=== PATIENT | male | born 1960 | race Caucasian/White ===

== ENCOUNTER 2019-02-12 04:59 | Inpatient (IN) ==
--- NOTE | 2019-02-09 14:53 | EKG Report ---
Test Performed on : 02/09/2019 2:35:42 PM Test Reason : PAT Blood Pressure : / mmHG Vent. Rate : 049 BPM Atrial Rate : 049 BPM P-R Int : 160 ms QRS Dur : 090 ms QT Int : 420 ms P-R-T Axes : 070 022 -06 degrees QTc Int : 379 ms Sinus bradycardia. Low voltage QRS T wave abnormality, consider inferior ischemia Abnormal ECG No previous ECGs available Confirmed by Gurjit GARCIA, Shaquille Rodriguez ([id number]) on 02/11/2019 9:42:05 AM
[2019-02-09 15:26] LABS: HEMATOCRIT 38.1 % (42.0-52.0); HEMOGLOBIN 13.2 g/dL (14.0-18.0); MCHC 34.6 g/dL (33-37); MCV 89.4 FL (81-99); MPV 11.4 FL (7.4-10.4); RBC 4.26 XMIL (4.7-6.1); RDW 12.8 % (11.5-14.5); WBC 8.97 X1000 (4.8-10.8)
[2019-02-09 15:46] LABS: AGAP 9; BUN 21 mg/dL (8-22); CALCIUM 9.5 mg/dL (8.8-10.2); CHLORIDE 101 mmol/L (98-107); COSMO 277; CREATININE 1.1 mg/dL (0.7-1.2); ESTIMATED GFR > 60; GLUCOSE 109 mg/dL (70-104); POTASSIUM 5.1 mmol/L (3.5-5.1); SODIUM 137 mmol/L (136-145); TCO2 27 mmol/L (25-35)
[2019-02-12] MEDS ORDERED: NITROGLYCERIN 50 MG/D5W 0 MG/0 ML IV.SOLN ONE (06:32)
[2019-02-12] MEDS ORDERED: KEFZOL 1 GM/D5W 1 GM/50 ML IVPB ONE (06:33)
[2019-02-12] MEDS ORDERED: REGLAN ONE (06:34)
[2019-02-12] MEDS ORDERED: PEPCID ONE (06:34)
[2019-02-12] MEDS ORDERED: HEPARIN ONE (10:03)
[2019-02-12] MEDS ORDERED: NS 500 ML ONE (10:03)
[2019-02-12] MEDS ORDERED: KEFZOL ONE (10:03)
[2019-02-12] MEDS ORDERED: NS 1,000 ML ONE (10:03)
[2019-02-12] MEDS ORDERED: XYLOCAINE 1% ONE (10:04)
[2019-02-12] MEDS ORDERED: MARCAINE 0.25% PF/EPI 1:200,000 ONE (11:15)
[2019-02-12] MEDS ORDERED: ZOFRAN ONE (11:24)
[2019-02-12] MEDS ORDERED: XYLOCAINE-MPF 2% ONE (11:24)
[2019-02-12] MEDS ORDERED: DECADRON ONE (11:24)
[2019-02-12] MEDS ORDERED: QUELICIN (DOSE) ONE (11:24)
[2019-02-12] MEDS ORDERED: NEO-SYNEPHRINE ONE (11:24)
[2019-02-12] MEDS ORDERED: SODIUM CHLORIDE 0.9% 10 ML ONE (11:24)
[2019-02-12] MEDS ORDERED: NORCURON ONE (11:24)
[2019-02-12] MEDS ORDERED: FENTANYL ONE (11:34)
[2019-02-12] MEDS ORDERED: DIPRIVAN 1% ONE (12:55)
[2019-02-12] MEDS ORDERED: NEOSTIGMINE ONE (13:04)
[2019-02-12] MEDS ORDERED: ROBINUL ONE (13:04)
[2019-02-12] MEDS ORDERED: ULTRAM PO PRN (13:58)
[2019-02-12] MEDS ORDERED: ZOFRAN IV PRN (13:58)
[2019-02-12] MEDS ORDERED: LR 1,000 ML ONE (14:15)
[2019-02-12] MEDS: OFIRMEV 1000 MG/ISOTONIC SOLN 1,000 MG/100 ML BOTTLE IV SCH ×2 (14:26→19:47)
[2019-02-12] MEDS: LR 1,000 ML IV SCH (14:45)
--- NOTE | 2019-02-12 18:29 | OPERATIVE NOTE ---
PROCEDURE DATE: 02/12/2019 OPERATION: Left carotid endarterectomy with patch angioplasty. SURGEON: Krystian Bunch MD [employer] DECK HAND: ALICIA Amezcua PREOPERATIVE DIAGNOSIS: High-grade left internal carotid stenosis. POSTOPERATIVE DIAGNOSIS: High-grade left internal carotid stenosis. PROCEDURE: After satisfactory general endotracheal anesthesia was achieved, we interrogated the left neck and identified the site of the bifurcation. We then placed the patient in a gentle reverse Trendelenburg position. The left side of the neck was then prepped and draped in sterile fashion. We marked the skin in an oblique fashion in the skin line and used 0.25% Marcaine with epinephrine in the skin and the subcutaneous tissue to anesthetize the skin locally. We incised the skin and carried our incision through the platysma. We then dissected along the anterior border of the sternocleidomastoid muscle. Crossing veins were ligated with 3-0 silk ties and divided. We identified the common carotid and surrounded it with an umbilical tape. We dissected out the external carotid, surrounding it with a large Vesseloop. This also included the superior thyroid artery. We then gave the patient 5000 units of heparin systemically. We dissected the internal. Some lymph nodes were removed. We identified the hypoglossal nerve and protected it from harm. We surrounded the internal carotid with a small Vesseloop. After the heparin had circulated for 5 minutes, we then occluded flow in the external with a Vesseloop. We clamped off the common carotid with an angled 3535 angled DeBakey clamp. We then clamped off the internal with a Profunda clamp. Under 2.5 loupe magnification, we then incised the common carotid and extended it with the Tristan scissors. We went through the very high-grade stenosis in the proximal internal. We placed a 4-3 mm Sundt shunt. Clamp time was less than 2 minutes. We then used a [place] to raise the plaque out of the common. We transected it proximally with the Tristan scissors. We continued to use the [place] and did an eversion endarterectomy of the external and then dissected out the internal with a satisfactory taper point. One small intimal clamp was tacked with a 7-0 Prolene stitch. We irrigated out the endarterectomized vessel and removed all leaflets we could identify. We then obtained a bovine patch that had been soaking. We then sewed it to the artery with a 6-0 Prolene running stitch. As we neared completion, we back-bled the external, then removed the shunt from the internal, and clamped it off once again. There was good satisfactory backbleeding. Then we removed the shunt from the common and flushed it antegrade. We once again clamped off the common. We then finished the patch angioplasty and secured the stitch. We held the internal occluded, opened the external and then the common, and after 5 seconds opened the internal. One additional stitch was used laterally to achieve complete hemostasis of the patch angioplasty. We irrigated out the wound with Kefzol-impregnated saline. We placed a Ruben drain within the wound, bringing it out inferiorly. We secured it at the skin level with 2-0 silk. We cut the drain to the appropriate length and placed it in the wound. We then proceeded to once again use local in the subcutaneous tissue and then closed the platysma with a running 3-0 Polysorb. The skin was then closed with a 4-0 Polysorb subcuticular stitch. A sterile dressing was applied. He tolerated the procedure satisfactorily and was awakening at the time of this dictation. cc: Krystian Bunch MD
[2019-02-13] MEDS: OFIRMEV 1000 MG/ISOTONIC SOLN 1,000 MG/100 ML BOTTLE IV SCH ×2 (01:17→06:17)
[2019-02-13] MEDS: LR 1,000 ML IV SCH (03:49)
[2019-02-13] MEDS ORDERED: NORCO-5 PO PRN (06:55)
[2019-02-13] MEDS ORDERED: LR 1,000 ML IV SCH (07:00)
[2019-02-13] MEDS: ASPIRIN PO SCH (08:47)
[2019-02-13] MEDS: LOFIBRA PO SCH (08:52)
[2019-02-13] MEDS: CRESTOR PO SCH (08:52)
[2019-02-13] MEDS: VITAMIN D PO SCH (08:52)
[2019-02-13] MEDS: HYZAAR 50/12.5 MG PO SCH (08:52)
[2019-02-13] MEDS: PRILOSEC PO SCH (08:52)
[2019-02-13] MEDS: VITAMIN E PO SCH (08:52)
[2019-02-13] MEDS: TOPROL XL PO SCH (08:52)
[2019-02-13] MEDS ORDERED: ASPIRIN PO SCH (09:00)
--- NOTE | 2019-02-13 10:57 | GENERAL SURGERY PROGRESS NOTE ---
DATE: 02/13/2019 SUBJECTIVE: Postoperative day 1 after left carotid endarterectomy. He is doing well. His trachea is in the midline. OBJECTIVE: Neurologically he is fine. Hemodynamics were satisfactory. He is a little bradycardic. PLAN: The plan is to remove his drain, remove his art line, and advanced his diet. Transfer him to a regular room. He should be able to go home by Saturday morning. cc: Krystian Bunch MD
[2019-02-14] MEDS: PRILOSEC PO SCH (05:59)
[2019-02-14] MEDS: LOFIBRA PO SCH (08:17)
[2019-02-14] MEDS: VITAMIN E PO SCH (08:17)
[2019-02-14] MEDS: TOPROL XL PO SCH (08:17)
[2019-02-14] MEDS: VITAMIN D PO SCH (08:17)
[2019-02-14] MEDS: HYZAAR 50/12.5 MG PO SCH (08:17)
[2019-02-14] MEDS: ASPIRIN PO SCH (08:17)
[2019-02-14] MEDS: CRESTOR PO SCH (08:17)
[2019-02-14 11:39] VITALS: BP 160/60
--- NOTE | 2019-02-14 20:07 | DISCHARGE SUMMARY ---
ADMISSION DATE: 02/12/2019 DISCHARGE DATE: 02/14/2019 HISTORY/HOSPITAL COURSE: Mr. Terrance Edge is a 58-year-old white male, now postop day 2 from a left carotid endarterectomy per Dr. Bunch. He has been in our ICU since surgery. There is no swelling involving his left neck. The wound is dressed. The drain has been removed. He is hemodynamically stable. DISPOSITION: It was felt safe to discharge him home under the care of his with followup in Dr. Bunch's outpatient office in 7 to 10 days. He is to return to his home medications and eat a regular diet, and he knows that he can shower. He knows to contact us with any problems. cc: MD Krystian Wyatt MD
== END 2019-02-14 12:20 | disposition home or self-care (01) | DRG 39 ==
LOC: SURHOLD 04:59 → ICU 14:47
PROVIDERS: ADMIT Surgery; ATTEND Surgery
CPT/HCPCS: 80048; 85027; 88304; 93005; 93010; 94762; A9270; C1763; J0131; J0330; J0690; J1100; J1644; J2370; J2405; J3010; J7030; J7040; J7120; S0020